=== PATIENT | female | born 1980 ===

== ENCOUNTER 2017-07-16 08:38 | Outpatient (CLI) | payer OTHER ==
[~2017-07-16] VITALS: Ht 167.6 cm; Wt 80.3 kg
== END 2017-07-16 09:00 | disposition home or self-care (01) ==
LOC: OFIC 805 08:38
DX: K21.9 Gastro-esophageal reflux disease without esophagitis (principal); H60.8X3 Other otitis externa, bilateral; R09.81 Nasal congestion